=== PATIENT | male | born 1960 | race American Indian/Alaskan Native ===

== ENCOUNTER 2020-10-21 10:35 | Outpatient (CLI) | payer OTHER ==
[2020-10-25 09:51] LABS: CD4/CD8 Ratio 0.44 (0.86-5.00)
== END 2020-10-21 10:36 | disposition home or self-care (01) ==
LOC: LAB 10:35
PROVIDERS: ATTEND Internal Medicine
DX: Z02.71 Encounter for disability determination (principal)
CPT/HCPCS: 36415; 82024

== ENCOUNTER 2021-03-08 12:04 | Outpatient (CLI) | payer OTHER | END 2021-03-08 12:05 | disposition home or self-care (01) | LOC: PF 12:04 | PROVIDERS: ATTEND Internal Medicine | DX: Z02.71 Encounter for disability determination (principal); J44.9 Chronic obstructive pulmonary disease, unspecified; R06.00 Dyspnea, unspecified | CPT/HCPCS: 94010; 94729 ==